=== PATIENT | female | born 1945 | race Hispanic/Latino ===

== ENCOUNTER 2023-11-11 16:18 | Emergency (ER) | payer MEDICARE | END 2023-11-11 17:55 | disposition home or self-care (01) | LOC: MADERS 16:18 | DX: J10.1 Influenza due to other identified influenza virus with other respiratory manifestations (principal); I10 Essential (primary) hypertension; E11.9 Type 2 diabetes mellitus without complications; Z79.84 Long term (current) use of oral hypoglycemic drugs; Z79.899 Other long term (current) drug therapy | CPT/HCPCS: 71045; 87804 ==